=== PATIENT | female | born 1995 | race Caucasian/White ===

== ENCOUNTER 2019-07-08 21:40 | Emergency (ER) | payer OTHER ==
[~2019-07-08] VITALS: Ht 177.8 cm; Wt 65.8 kg
--- NOTE | 2019-07-08 22:50 | NUR ---
Pt received from c/o aj on both lower legs. approx 3x4cm on each. denies any other health concerns MD at bedside for hx and physical
[2019-07-08] MEDS ORDERED: NEOMY/BACITRA/POLYMYXIN B OINT UD PACKET TP ONE ×2 (23:08→23:45)
--- NOTE | 2019-07-08 23:35 | NUR ---
Patient discharged to home in stable conditon. Written and verbal after care instructions given. Patient verbalizes understanding of instructions. WALKED OUT OF ER WITH NO DISTRESS NOTED
[2019-07-08 23:37] VITALS: BP 122/88
== END 2019-07-08 23:38 | disposition home or self-care (01) ==
LOC: ER 21:40
DX: T24.202A Burn of second degree of unspecified site of left lower limb, except ankle and foot, initial encounter (principal); T24.201A Burn of second degree of unspecified site of right lower limb, except ankle and foot, initial encounter; K21.9 Gastro-esophageal reflux disease without esophagitis; F17.200 Nicotine dependence, unspecified, uncomplicated; X19.XXXA Contact with other heat and hot substances, initial encounter; Y93.89 Activity, other specified; Y92.89 Other specified places as the place of occurrence of the external cause; Y99.8 Other external cause status
CPT/HCPCS: A4217; A4663